=== PATIENT | male | born 1935 | race Caucasian/White ===

== ENCOUNTER → 2018-03-08 | Outpatient (CLI) | payer OTHER | LOC: PET 07:16 | DX: I71.4 Abdominal aortic aneurysm, without rupture (principal); K57.30 Diverticulosis of large intestine without perforation or abscess without bleeding; I25.10 Atherosclerotic heart disease of native coronary artery without angina pectoris; M47.814 Spondylosis without myelopathy or radiculopathy, thoracic region; I70.0 Atherosclerosis of aorta; R91.1 Solitary pulmonary nodule ==

== ENCOUNTER → 2018-08-08 | Outpatient (CLI) | payer OTHER | LOC: CAT 09:48 | DX: R91.8 Other nonspecific abnormal finding of lung field (principal) ==

== ENCOUNTER → 2019-02-07 | Outpatient (CLI) | payer OTHER | LOC: CAT 02-05 11:17 | DX: J43.2 Centrilobular emphysema (principal); I70.0 Atherosclerosis of aorta; I25.10 Atherosclerotic heart disease of native coronary artery without angina pectoris; J84.10 Pulmonary fibrosis, unspecified; R91.1 Solitary pulmonary nodule; N20.0 Calculus of kidney; K76.89 Other specified diseases of liver; Z95.0 Presence of cardiac pacemaker; Z95.818 Presence of other cardiac implants and grafts ==

== ENCOUNTER → 2020-02-26 | Outpatient (CLI) | payer OTHER | LOC: CAT 10:54 | PROVIDERS: ATTEND Internal Medicine Pulmonary Disease | DX: R91.1 Solitary pulmonary nodule (principal); J98.4 Other disorders of lung ==

== ENCOUNTER → 2020-04-07 | Outpatient (CLI) | payer OTHER | LOC: CAT 10:33 | PROVIDERS: ATTEND Internal Medicine Pulmonary Disease | DX: G31.89 Other specified degenerative diseases of nervous system (principal); Z85.118 Personal history of other malignant neoplasm of bronchus and lung ==

== ENCOUNTER → 2020-04-14 | Outpatient (CLI) | payer OTHER ==
[~2020-04-14] MED LIST: ASA81BEC PO; ATORVASTATIN CA80 MG PO; CARVEDILOL12.5 MG PO; CLOPIDOGREL75 MG PO; LOSARTAN POTAS100 MG PO; NEURONTIN 300M300 M2 PO; NITROSTAT0.4 MG SUBLING; NORCO 10-325 T1 EACH PO; PANTOPRAZOLE SO40 M1 PO; PROAIR HFA8.5 GM INH; TRAMADOL 50 MG50 MG PO; VITAMIN B-121000 MC2 SUBLING; VITAMIN C500 M2 PO; VITAMIN D325 MC3 PO
== END ==
LOC: CAT 14:21
PROVIDERS: ATTEND Pediatrics
DX: J43.8 Other emphysema (principal); N20.0 Calculus of kidney; J84.10 Pulmonary fibrosis, unspecified; R91.1 Solitary pulmonary nodule

== ENCOUNTER → 2020-04-15 | Outpatient (CLI) | payer OTHER ==
[~2020-04-15] VITALS: Ht 165.1 cm; Wt 66.2 kg
[2020-04-15 08:50] VITALS: BP 135/74
--- NOTE | 2020-04-19 10:06 | PATH ---
[facility] [address] [place] [address] PATHOLOGY RPT PROCEDURE Name: JACKIE WANG Room #: REG INGE Gianfranco.#: [id number] Admission: 04/15/20 Date of : 33 Discharge: Report #: [id number] Path Case #: [id number] Note LCA Accession Number: [id number] TESTS RESULT FLAG UNITS REF RANGE LAB Clinician Provided Cytology Information No. of containers..01 Other (Miscellaneous) Source: BAL RUL DIAGNOSIS: 02 BAL RUL NEGATIVE FOR MALIGNANT EPITHELIAL CELLS. REACTIVE BRONCHIAL CELLS AND MACROPHAGES ARE PRESENT. PULMONARY MACROPHAGES (DUST CELLS) ARE PRESENT. Pathologist ICD10: 02 R91.8 Signed out by: 02 Emily Bunn MD, Pathologist NPI- [id number] Performed by: 01 Katlin Davison, Fixed Wing Aircraft Flight Mechanic ([facility]) Gross description: 01 5ML, PALE PINK, 1 TP /LCS 04/15/20202000 [facility] FLAG LEGEND: L-Low Normal,H-High Normal,LL-Alert Low,HH-Alert High <-Panic Low,>-Panic High,A-Abnormal,AA-Critical Abnormal Performed at: [address] [place] [address] Lokesh Dumont MD, [address] [address] Emily Bunn MD, Specimen Comment: A courtesy copy of this report has been sent to [phone] Specimen Comment: [phone], Specimen Comment: Report sent to ,DR MARSHALL / DR CUEVAS Specimen Comment: A duplicate report has been generated due to demographic updates. Performed at: [address], [place], [place] [id number] MD Lokesh Dumont MD Phone: [phone]
--- NOTE | 2020-04-19 10:06 | PATH ---
[facility] [address] [place] [address] PATHOLOGY RPT PROCEDURE Name: JACKIE WANG Room #: REG INGE Aviles.#: [id number] Admission: 04/15/20 Date of : 33 Discharge: Report #: [id number] Path Case #: [id number] Note LCA Accession Number: [id number] TESTS RESULT FLAG UNITS REF RANGE LAB Clinician Provided Cytology Information No. of containers..01 Other (Miscellaneous) Source: 01 RUL TR ND BRUSH TIP DIAGNOSIS: 02 RUL TR ND BRUSH TIP NEGATIVE FOR MALIGNANT EPITHELIAL CELLS. REACTIVE BRONCHIAL CELLS AND MACROPHAGES ARE PRESENT. PULMONARY MACROPHAGES (DUST CELLS) ARE PRESENT. RED BLOOD CELLS ARE PRESENT. Pathologist ICD10: 02 R91.8 Signed out by: 02 Emiyl Bunn MD, Pathologist NPI- [id number] Performed by: Katlin Davison, Electronic Warfare Technician ([facility]) Gross description: 01 1 TP /KULDEEP 04/15/20201958 Local FLAG LEGEND: L-Low Normal,H-High Normal,LL-Alert Low,HH-Alert High <-Panic Low,>-Panic High,A-Abnormal,AA-Critical Abnormal Performed at: [address] [facility] [address] [place] [address] Lokesh Dumont MD, [address] [address] Emily Bunn MD, Specimen Comment: A courtesy copy of this report has been sent to [phone] Specimen Comment: [phone], Specimen Comment: Report sent to ,DR MARSHALL / DR CUEVAS Specimen Comment: A duplicate report has been generated due to demographic updates. Performed at: [address], [place], [place] [id number] [address] [address] PATHOLOGY RPT PROCEDURE Name: JACKIE WANG Room #: REG INGE Verdugo#: [id number] Admission: 04/15/20 Date of : 33 Discharge: Report #: [id number] Path Case #: [id number] MD Lokesh Dumont MD Phone: [phone]
--- NOTE | 2020-04-19 10:06 | PATH ---
[facility] [address] [place] [place] [address] PATHOLOGY RPT PROCEDURE Name: JACKIE WANG Room #: REG INGE Aviles.#: [id number] Admission: 04/15/20 Date of : 33 Discharge: Report #: [id number] Path Case #: [id number] Note LCA Accession Number: [id number] TESTS RESULT FLAG UNITS REF RANGE LAB Clinician Provided Cytology Information No. of containers..01 Slide Source: TBNA RUL DIAGNOSIS: 02 TBNA RUL NEGATIVE FOR MALIGNANT EPITHELIAL CELLS. REACTIVE BRONCHIAL CELLS AND MACROPHAGES ARE PRESENT. RED BLOOD CELLS ARE PRESENT. EXTENSIVE AIR-DRYING ARTIFACT PRESENT. Pathologist ICD10: 02 R91.8 Signed out by: Emily Bunn MD, Pathologist NPI- [id number] Performed by: Katlin Davison, Digital Librarian ([facility]) Gross description: 01 2 FIXED /LCS 04/15/20202002 [facility] FLAG LEGEND: L-Low Normal,H-High Normal,LL-Alert Low,HH-Alert High <-Panic Low,>-Panic High,A-Abnormal,AA-Critical Abnormal Performed at: [address] [place] [address] Lokesh Dumont MD, [address] [address] Emily Bunn MD, Specimen Comment: A courtesy copy of this report has been sent to [phone] Specimen Comment: [phone], Specimen Comment: Report sent to ,DR MARSHALL / DR CUEVAS Specimen Comment: A duplicate report has been generated due to demographic updates. Performed at: [address], [place], [place] [id number] [address] [address] PATHOLOGY RPT PROCEDURE Name: JACKIE WANG Room #: REG INGE Verdugo#: [id number] Admission: 04/15/20 Date of : 33 Discharge: Report #: [id number] Path Case #: [id number] MD Lokesh Dumont MD Phone: [phone]
--- NOTE | 2020-04-19 10:06 | PATH ---
[facility] [address] [place] [address] PATHOLOGY RPT PROCEDURE Name: JACKIE WANG Room #: REG INGE Alice.#: [id number] Admission: 04/15/20 Date of : 33 Discharge: Report #: [id number] Path Case #: [id number] Note LCA Accession Number: [id number] TESTS RESULT FLAG UNITS REF RANGE LAB Clinician Provided Cytology Information No. of containers..01 Slide Source: RUL BRUSHINGS DIAGNOSIS: RUL BRUSHINGS INADEQUATE, INSUFFICIENT CELLS FOR STUDY. ABUNDANT RED BLOOD CELLS ARE PRESENT. NO BRONCHIAL EPITHELIAL CELLS OR PULMONARY MACROPHAGES PRESENT. Pathologist ICD10: 02 R91.8 Signed out by: Emily Bunn MD, Pathologist NPI- [id number] Performed by: Katlin Davison, Internal Combustion Engine Inspector ([facility]) Gross description: 01 2 FIXED /LCS 04/15/20201951 Local FLAG LEGEND: L-Low Normal,H-High Normal,LL-Alert Low,HH-Alert High <-Panic Low,>-Panic High,A-Abnormal,AA-Critical Abnormal Performed at: [address] [place] [address] Lokesh Dumont MD, [address] [address] Emily Bunn MD, Specimen Comment: A courtesy copy of this report has been sent to [phone] Specimen Comment: [phone], Specimen Comment: Report sent to ,DR MARSHALL / DR CUEVAS Specimen Comment: A duplicate report has been generated due to demographic updates. Performed at: [address], [place], [place] [id number] MD Lokesh Dumont MD Phone: [phone]
--- NOTE | 2020-04-19 10:06 | PATH ---
[facility] [address] [place] [address] PATHOLOGY RPT PROCEDURE Name: JACKIE WANG Room #: REG INGE Aviles.#: [id number] Admission: 04/15/20 Date of : 33 Discharge: Report #: [id number] Path Case #: [id number] Note LCA Accession Number: [id number] TESTS RESULT FLAG UNITS REF RANGE LAB Clinician Provided Cytology Information No. of containers..01 Other (Miscellaneous) Source: TBNA RUL ASPIRATE DIAGNOSIS: TBNA RUL ASPIRATE NEGATIVE FOR MALIGNANT EPITHELIAL CELLS. REACTIVE BRONCHIAL CELLS ARE PRESENT. THIS INTERPRETATION INCLUDES EVALUATION OF A CELL BLOCK. SCANT CELLULARITY. Pathologist ICD10: 02 R91.8 Signed out by: 02 Emily Bunn MD, Pathologist NPI- [id number] Performed by: Raul Davison, Title Closer ([facility]) Gross description: 01 20ML, CLOUDY RED, 1 CB /LCS 04/15/20202006 Local FLAG LEGEND: L-Low Normal,H-High Normal,LL-Alert Low,HH-Alert High <-Panic Low,>-Panic High,A-Abnormal,AA-Critical Abnormal Performed at: [address] [place] [address] Lokesh Dumont MD, [address] [address] Emily Bunn MD, Specimen Comment: A courtesy copy of this report has been sent to [phone] Specimen Comment: [phone], Specimen Comment: Report sent to ,DR MARSHALL / DR CUEVAS Specimen Comment: A duplicate report has been generated due to demographic updates. Performed at: [address], [place], [place] [id number] [address] [address] PATHOLOGY RPT PROCEDURE Name: JACKIE WANG Room #: REG INGE Verdugo#: [id number] Admission: 04/15/20 Date of : 33 Discharge: Report #: [id number] Path Case #: [id number] MD Lokesh Dumont MD Phone: [phone]
--- NOTE | 2020-04-20 10:07 | PATH ---
[facility] [address] [place] [address] PATHOLOGY RPT PROCEDURE Name: JACKIE WANG Room #: REG [facility] M.R.#: [id number] Admission: 04/15/20 Date of : 33 Discharge: Report #: [id number] Path Case #: [id number] LCA Accession Number: [id number] . 01 Material submitted: . bronchus - RUL TISSUE BIOPSY. Modifiers: right, upper lobe . 01 Clinical history: . NODULES/MASS . 02 Diagnosis: Bronchus, right upper lobe tissue, biopsy: - Benign alveolated lung parenchyma, fragments of vessels, as well as benign bronchial tissue. - Negative for malignancy. - Abundant pigmented macrophages present within the background. (IUV/db; 04/19/2020) LBQ 04/19/2020 1312 Local . 02 Electronically signed: . Emily Bunn MD, Pathologist NPI- [id number] . 01 Gross description: . The specimen is received in formalin, labeled "Jackie Wang, biopsy RUL" and consists of multiple fragments of brewer-brown tissue measuring 0.8 x 0.6 x 0.2 cm in aggregate which are entirely submitted in A1. (SDY; 04/16/2020) SYU/SYU 04/16/2020 1045 Local . 02 Pathologist provided ICD-10: Z03.89 . 02 CPT . [id number] Specimen Comment: A courtesy copy of this report has been sent to [phone] Specimen Comment: [phone], Specimen Comment: Report sent to ,DR MARSHALL / DR CUEVAS Specimen Comment: A duplicate report has been generated due to demographic updates. Performed at: 01 [place] [id number] [id number] MD Lokesh Dumont MD Phone: [phone] Performed at: 02 [facility] [address] [place] [address] PATHOLOGY RPT PROCEDURE Name: JACKIE WANG Room #: REG CL Kisha.R.#: [id number] Admission: 04/15/20 Date of : 33 Discharge: Report #: [id number] Path Case #: [id number] [address] [place], [place] [id number] MD Emily Bunn MD Phone: [phone]
== END | disposition home or self-care (01) ==
LOC: OR → EDSTATUS 10:16 → OR 12:30
PROVIDERS: ATTEND Pediatrics
DX: R91.8 Other nonspecific abnormal finding of lung field (principal); R91.1 Solitary pulmonary nodule; I10 Essential (primary) hypertension; I25.2 Old myocardial infarction; E11.9 Type 2 diabetes mellitus without complications; J43.9 Emphysema, unspecified; E78.5 Hyperlipidemia, unspecified; I73.9 Peripheral vascular disease, unspecified; F17.210 Nicotine dependence, cigarettes, uncomplicated; K21.9 Gastro-esophageal reflux disease without esophagitis; Z98.890 Other specified postprocedural states; Z20.828 Contact with and (suspected) exposure to other viral communicable diseases; Z79.899 Other long term (current) drug therapy
CPT/HCPCS: 50010; 70005